=== PATIENT | male | born 1990 | race Two or more races ===

== ENCOUNTER 2024-08-01 20:38 | Emergency (ER) | payer MEDICAID, OTHER ==
[~2024-08-01] VITALS: Ht 182.9 cm; Wt 77.3 kg
[2024-08-01 21:05] VITALS: BP 129/88; PULSE 78; RESP 18; TEMP 98.5; O2SAT 96
[2024-08-01] MEDS ORDERED: CYCL-837 PO (23:53)
[2024-08-01] MEDS ORDERED: IBUP-1456 PO (23:53)
== END 2024-08-02 00:19 | disposition home or self-care (01) ==
LOC: ER 20:38
DX: S39.012A Strain of muscle, fascia and tendon of lower back, initial encounter (principal); Z79.899 Other long term (current) drug therapy; X50.0XXA Overexertion from strenuous movement or load, initial encounter; Y93.89 Activity, other specified; Y92.89 Other specified places as the place of occurrence of the external cause; Y99.0 Civilian activity done for income or pay